=== PATIENT | male | born 1960 | race Caucasian/White ===

== ENCOUNTER 2017-05-01 12:29 | Emergency (ER) | payer BC ==
[2017-05-01 13:09] VITALS: BP 116/60
[2017-05-01] MEDS ORDERED: Eye Irrigation Solution 30 ML BOTTLE LEFT EYE ONE (14:19)
[2017-05-01] MEDS ORDERED: Fluorescein Sodium TOPICAL* 1 MG TEST ONE (14:20)
[2017-05-01] MEDS ORDERED: Tetracaine 0.5% OPTH.SOL 4 ML* 1 DROP BTL ONE (14:20)
[2017-05-01] MEDS ORDERED: BSS OPTH.SOL* BTL ONE (14:20)
--- NOTE | 2017-05-01 14:29 | UC ---
Eye Complaint HPI - HPI Summary HPI Summary: Sawdust to left eye since 1100 this morning. He did irrigate the area but feels there could be some saw dust in the eye still. no significant eye pain. no vision changes otherwise. [ End ] - History of Current Complaint Chief Complaint: UCEye Stated Complaint: EYE FOREIGN BODY Time Seen by Provider: 05/01/17 14:13 Hx Obtained From: Patient Onset/Duration: Sudden Onset Timing: Constant Severity Initially: Mild Location of Injury: Eye Lid (lower), Eye Lid (upper) Character: Dull, Foreign Body Sensation Aggravating Factor(s): Blinking Alleviating Factor(s): Nothing Associated Signs And Symptoms: Positive: Negative Related History: Foreign Body - Allergies/Home Medications Allergies/Adverse Reactions: Allergies Allergy/AdvReac Type Severity Reaction Status Date / Time Penicillins Allergy Unknown Verified 05/01/17 13:02 Reaction Details PMH/Surg Hx/FS Hx/Imm Hx Previously Healthy: Yes - Surgical History Surgical History: Yes Surgery Procedure, Year, and Place: Cholecystectomy 2005 [facility] - Family History Known Family History: Positive: Cardiac Disease, Diabetes - Social History Occupation: Employed Full-time Lives: With Family Alcohol Use: None Alcohol Amount: Quit 8 years ago Substance Use Type: None Smoking Status (MU): Former Smoker Type: Cigars Amount Used/How Often: 25 years/ 5 cigars a day Length of Time of Smoking/Using Tobacco: 29 Years Have You Smoked in the Last Year: No When Did the Patient Quit Smoking/Using Tobacco: 2004 - Immunization History Most Recent Influenza Vaccination: September 2015 Most Recent Tetanus Shot: 07/2011 Most Recent Pneumonia Vaccination: never/unsure Review of Systems Constitutional: Negative Skin: Negative Eyes: Eye Redness ENT: Negative Respiratory: Negative Cardiovascular: Negative Gastrointestinal: Negative Genitourinary: Negative Motor: Negative Neurovascular: Negative Musculoskeletal: Negative Neurological: Negative Psychological: Negative All Other Systems Reviewed And Are Negative: Yes Physical Exam Triage Information Reviewed: Yes Appearance: Well-Appearing, No Pain Distress, Well-Nourished Vital Signs: Initial Vital Signs Temp 98.5 F 05/01/17 13:03 Pulse 68 05/01/17 13:03 Resp 16 05/01/17 13:03 BP 116/60 05/01/17 13:03 Pulse Ox 100 05/01/17 13:03 Vital Signs Reviewed: Yes Eyes: Positive: Conjunctiva Inflamed - left, Other: - left eye with no FB present. ENT Exam: Normal Neck: Positive: 1 Respiratory Exam: Normal Cardiovascular Exam: Normal Musculoskeletal Exam: Normal Neurological Exam: Normal Psychological Exam: Normal Skin Exam: Normal - Additional Comments (+) flourescein uptake left eye about 3 o clock no ulceration and its on the conjunctiva not the sclera at this time. irrigated the eye and then given tetracaine and the pain resolved and subsided. Eye Complaint Course/Dx - Course Course Of Treatment: no FB. if Sx persist then go to PCP or Optho. - Differential Dx/Diagnosis Differential Diagnosis/HQI/PQRI: Corneal Abrasion, Penetrating Injury Provider Diagnoses: corneal abrasion left eye Discharge - Discharge Plan Condition: Good Disposition: HOME Prescriptions: Polymyx/Trimethoprim OPTH* [Polytrim OPHTH*] 1 drop LEFT EYE Q3H #1 btl Patient Education Materials: Corneal Abrasion (ED) Referrals: Julissa Hagen [Primary Care Provider] - 3 Days
[2017-05-01] MEDS ORDERED: Tetracaine 0.5% OPTH.SOL 4 ML* 1 DROP BTL LEFT EYE SCH (14:30)
== END 2017-05-01 14:47 | disposition home or self-care (01) ==
LOC: UCCORT 12:29
DX: S05.02XA Injury of conjunctiva and corneal abrasion without foreign body, left eye, initial encounter (principal); X58.XXXA Exposure to other specified factors, initial encounter; Y93.9 Activity, unspecified; Y92.9 Unspecified place or not applicable; Z88.0 Allergy status to penicillin; Z90.49 Acquired absence of other specified parts of digestive tract; Z87.891 Personal history of nicotine dependence
CPT/HCPCS: 99212; A9270-GY; G0463